=== PATIENT | female | born 1970 | race Caucasian/White ===

== ENCOUNTER → 2017-11-17 | Outpatient (CLI) | payer OTHER ==
[~2017-11-17] MED LIST: AMLO-110 PO; CNC/18 PO; LISI-729 PO; PRZ/40 PO
--- NOTE | 2017-11-17 19:30 | DIAGNOSTIC IMAGING REPORT ---
MRI OF THE CERVICAL SPINE WITHOUT IV CONTRAST CLINICAL HISTORY: Chronic neck pain. Left arm numbness. COMPARISON STUDY: MRI of the cervical spine dated 09/16/2015. TECHNIQUE: MRI of the cervical spine is performed utilizing various T1 and T2 weighted sequences in the axial, sagittal, and coronal planes. IV contrast was not administered for this examination. The examination is degraded by motion artifact. FINDINGS: Cervical spine: Vertebral body height and alignment are maintained throughout the cervical spine. Normal marrow signal intensity is preserved throughout the visualized osseous structures. The atlantodental articulation is maintained. The spinous processes appear intact. No destructive bony lesion is seen. A small hemangioma is noted in the body of C6. Intervertebral discs: Degenerative disc desiccation is seen throughout the cervical spine. The disc spaces are maintained. Spinal cord: The cervical spinal cord is normal in morphology and signal intensity. C2-C3: Unremarkable. C3-C4: Uncovertebral and facet arthropathy cause mild left neural foraminal stenosis. The central canal is patent. C4-C5: A small posterior disc osteophyte complex is eccentric to the left. Uncovertebral arthropathy causes mild left-sided neural foraminal stenosis. There is no significant acquired compromise of the central canal. C5-C6: A posterior disc osteophyte complex abuts the ventral cord. Uncovertebral and facet arthropathy cause [id number], left greater than right, neural foraminal stenosis. C6-C7: There is a disc herniation eccentric to left which measures up to 7 mm. In conjunction with a posterior disc osteophyte complex, this effaces the ventral cord. The minimum AP canal diameter measures 6 mm. Uncovertebral and facet arthropathy cause moderate to severe left and moderate right neural foraminal stenosis. C7-T1: Unremarkable. Soft tissues: The prevertebral and paraspinous soft tissues are normal in appearance. Brain parenchyma: Partially imaged brain parenchyma at the skull base is grossly normal. Partially empty sella is an incidental finding. IMPRESSION: 1. Motion degraded examination. 2. There is cervical spondylosis at C6-C7 where a disc herniation and disc osteophyte complex effaces the ventral cord. 3. Spondylotic change at additional levels as above. See discussion for detailed level by level analysis. 4. The cervical spinal cord is normal in morphology and signal intensity. 5. Additional findings as above. Dictated: 11/17/2017 5:38 PM Transcribed: 11/17/2017 7:30 PM [email or web address] Electronically signed by: Basil Curran M.D. 11/17/2017 7:50 PM Dictated Date/Time: 11/17/2017 5:38 PM
== END | disposition home or self-care (01) ==
LOC: C.MRIBC 16:50
PROVIDERS: ATTEND Anesthesiology
DX: M48.02 Spinal stenosis, cervical region (principal); M47.812 Spondylosis without myelopathy or radiculopathy, cervical region

== ENCOUNTER → 2017-11-23 | Outpatient (CLI) | payer OTHER | END | disposition home or self-care (01) | LOC: C.PATHSPEC 11:17 | PROVIDERS: ATTEND Plastic Surgery | DX: D22.9 Melanocytic nevi, unspecified (principal) ==

== ENCOUNTER → 2018-03-06 | Outpatient (CLI) | payer OTHER ==
[~2018-03-06] VITALS: Ht 162.6 cm; Wt 104.1 kg
[~2018-03-06] MED LIST changes: -AMLO-110 PO; +AMLO5TAB3 PO
[2018-03-06 16:02] VITALS: BP 127/54; PULSE 93; Ht 162.6 cm; Wt 104.1 kg
== END | disposition home or self-care (01) ==
LOC: C.NEUR 15:30
PROVIDERS: ATTEND Physician Assistant Medical
DX: R06.81 Apnea, not elsewhere classified (principal); R06.83 Snoring; R53.83 Other fatigue; F90.9 Attention-deficit hyperactivity disorder, unspecified type; Z82.0 Family history of epilepsy and other diseases of the nervous system

== ENCOUNTER 2019-01-25 05:49 | Observation (INO) ==
--- NOTE | 2019-01-08 17:38 | PAT Medication Instructions ---
Medication Instructions Date of Service January 08, 2019 Home Medications amlodipine 10 mg PO QAM lisinopril 5 mg PO QAM Advil Allergy Sinus acetaminophen 500 mg PO DAILY PRN fluoxetine [Prozac] 10 mg PO QAM ibuprofen [Advil] 200 mg PO Q6H PRN melatonin 10 mg PO HS PRN ASK your surgeon for instructions Advil Allergy Sinus ibuprofen [Advil] 200 mg PO Q6H PRN DO NOT take the morning of surgery lisinopril 5 mg PO QAM Take morning of surgery With a small sip of water, OTHERWISE NOTHING TO EAT OR DRINK AFTER MIDNIGHT: amlodipine 10 mg PO QAM acetaminophen 500 mg PO DAILY PRN (if needed, may be taken up to four hours before surgery) fluoxetine [Prozac] 10 mg PO QAM Take evening before surgery acetaminophen 500 mg PO DAILY PRN (if needed) melatonin 10 mg PO HS PRN (if needed) Other Notes If you have any questions please call us at [phone] or [phone] or [phone] or [phone]
--- NOTE | 2019-01-09 12:23 | Anesthesiology Consultation ---
Date of Service January 09, 2019 Assessment & Plan (1) Encounter for pre-operative examination: CHECK TEST AM DOS Chart Review Chart Review: Acceptable Risk for Surgery and Patient seen in Pre Admission Testing Teaching & Discussion Instructed NPO after midnight before surgery, except medications with 15 cc of water. Medication instructions provided according to the PAT guidelines. History Surgery Operation Date: 01/25/19 07:30 Proposed Procedures p Robotic Total Laparoscopic Hysterectomy - Lenore Palacios MD, FACOG Height/Weight Height: 5 ft 4 in Weight: 101.9 kg Allergies Allergy/AdvReac Type Severity Reaction Status Date / Time Macrolide Antibiotics Allergy Unknown HEMATEMESIS Verified 01/03/19 09:52 SEASONAL ALLERGIES Allergy Unknown HAYFEVER Uncoded 01/03/19 09:52 S/S Medications Home Medications Medication Instructions Recorded Confirmed Last Taken amlodipine 10 mg PO QAM 08/06/18 01/03/19 08/06/18 lisinopril 5 mg PO QAM 08/06/18 01/03/19 08/06/18 Advil Allergy Sinus 01/03/19 Unknown acetaminophen 500 mg PO DAILY PRN 01/03/19 01/03/19 Unknown fluoxetine [Prozac] 40 mg PO QAM 01/03/19 01/09/19 Unknown ibuprofen [Advil] 200 mg PO Q6H PRN 01/03/19 01/03/19 Unknown melatonin 10 mg PO HS PRN 01/03/19 01/03/19 Unknown Past Medical History Medical History Anxiety (Chronic) Depression (Chronic) HTN (hypertension) (Chronic) GERD (gastroesophageal reflux disease) Herniated disc CERVICAL Exercise / Class Metabolic Activity II 4-5 Yardwork/Stairs/Walk up hill (denies cp or sob with stairs) Past Family History Family History Grandfather (Paternal) Family hx of colon cancer Past Surgical History Surgical History Family history of reaction to anesthesia MOTHER NAUSEA/VOMITTING History of arthroscopy LEFT KNEE History of breast biopsy History of tooth extraction Nausea and vomiting after administration of anesthetic agent Past Anesthesia History No Hx of Anesthesia Complications (other than PONV) and No Family Hx of Anesthesia Complications (other than PONV) History of PONV History of PONV Social History Smoking Status: Never smoker Do You Dip or Chew Tobacco: No Hx Alcohol Use: Yes Alcohol type: beer, wine and hard liquor alcohol intake frequency: a few times a week Hx Substance Use: No substance use type: does not use Review of Systems Pt denies any recent chest pain, shortness of breath, palpitations, cough, fever or URI. Physical Exam Vital Signs BP: 91320 P: 75bpm SPO2: 97% RA T: 99.3 F R: 18 Constitutional + obese ENMT Mouth: + chipped teeth (upper R rear molar); no dental restorations and no loose teeth Thyromental Distance: > or= 3.5 Finger Breadths (4) Mallampati Class: III Neck + thick neck; neck extension not limited Respiratory normal respiratory effort Auscultation: lungs clear to auscultation bilaterally Cardiovascular Rate/Rhythm: regular rate and regular rhythm Heart Sounds: no murmur Extremities: no edema Testing Laboratory Results 01/09/19 12:31 01/09/19 12:31 Blood Type O Positive 01/09/19 12:31 Antibody Screen NEGATIVE 01/09/19 12:31 Electrocardiogram Date: 08/06/18 Findings: + NSR @ (82) *poor data quality. Chest X-Ray Date: 08/06/18 Findings: + NAD
[2019-01-09 13:57] LABS: Basophils # (auto) 0.02 K/uL (0-0.2); Basophils % (auto) 0.2 %; Eosinophils # (auto) 0.17 K/uL (0-0.5); Eosinophils % (auto) 1.9 %; Hematocrit (blood only) 39.3 % (37-47); Hemoglobin 13.3 g/dL (12.0-16.0); Immature Granulocytes # (auto) 0.02 K/uL (0.00-0.02); Immature Granulocytes % (auto) 0.2 %; Lymphocytes # (auto) 2.35 K/uL (1.2-3.4); Lymphocytes % (auto) 26.8 %; Mean Corpuscular Hgb Conc 33.8 g/dL (32-36); Mean Corpuscular Volume 86.8 fL (80-100); Mean Platelet Volume 9.8 fL (7.4-10.4); Monocytes # (auto) 0.81 K/uL (0.11-0.59); Monocytes % (auto) 9.2 %; Neutrophils # (auto) 5.39 K/uL (1.4-6.5); Neutrophils % (auto) 61.7 %; Platelet Count 345 K/uL (130-400); RDW Standard Deviation 41.5 fL (36.4-46.3); Red Blood Count 4.53 M/uL (4.2-5.4); White Blood Count 8.76 K/uL (4.8-10.8)
[2019-01-09 14:26] LABS: BUN Creatinine Ratio 17.1 (10-20); Calcium 9.4 mg/dl (8.5-10.1); Creatinine Clr Calc Pharmacy 102.1 ml/min; Est GFR (African American) 102.5; Est GFR (Non-African American) 88.4; Potassium 4.2 mmol/L (3.5-5.1)
--- OUTSIDE RECORDS SUMMARY | 2019-01-25 05:53 | External Medical Summary | Continuity of Care Document ---
:1970 Author Name Valentín Mandel, Provider Address Unavailable Unavailable , Care Team Providers Name Role Phone Elyse Miller Unavailable [email or web address] Palacios [email or web address]. Unavailable [email or web address] ELYSE ARMENTA Unavailable Unavailable Isis CHAVIRA Unavailable Unavailable Unavailable Unavailable Unavailable Problems Lump of skin of upper extremity, right (782.2) (R22.31) Chronic neck pain (723.1) (M54.2) Numbness of left hand (782.0) (R20.0) Sleep apnea (780.57) (G47.30) Leiomyoma (215.9) (D21.9) Uterine enlargement (621.2) (N85.2) Menorrhagia (626.2) (N92.0) Pelvic pain (R10.2) Encounter for routine gynecological exam ination with Papanicolaou smear of cervix (V72.31) (Z01.419) Blue nevus (216.9) (D23.9) ADHD (314.01) (F90.9) Fatigue (780.79) (R53.83) Snoring (786.09) (R06.83) Witnessed episode of apnea (786.03) (R06.81) Change in mole (216.9) (D22.9) Benign essential hypertension (401.1) (I10) Depression with anxiety (300.4) (F41.8) Chest pressure (786.59) (R07.89) Encounter for IUD insertion (V25.11) (Z30.430) Dermatofibroma (216.9) (D23.9) Atypical nevi (216.9) (D22.9) Skin irritation from shaving (692.9) (L25.9) Change in pigmented skin lesion (216.9) (L81.9) Allergies and Adverse Reactions Azithromycin PACK (Allergy) Medications Lisinopril 5 MG Oral Tablet; TAKE 1 TABLET DAILY. Start: 12-Aug-2016 Quantity: 90 Refills: 3 amLODIPine Besylate 10 MG Oral Tablet; TAKE 1 TABLET EVERY D AY Quantity: 90 Refills: 3 FLUoxetine HCl - 40 MG Oral Capsule; TAKE 1 CAPSULE BY MOUTH EVERY DAY SASKIA Armenta Start: 03-Nov-2018 Quantity: 30 Refills: 5 hydrOXYzine HCl - 10 MG Oral Tablet; ELIO E 1 TABLET EVERY 8 HOURS NEEDED FOR ANXIETY. SASKIA Armenta Start: 31-Aug-2018 Quantity: 30 Refills: 0 Procedures History of Knee Surgery Status: Complete d History of Pilonidal Cyst Resection Stat us: Completed Immunizations Immunizations not documented Family History Mother Family history of Anxiety (300.00) (F41.9) Status: Active Family history of depression (V17.0) (Z81.8) Status: Active Family history of sleep apnea (V19.8) (Z82.0) Status: Active Father Family history of hypertension (V17.49) (Z82.49) Status: Act donald Grandfather Family history of Colon cancer (153.9) (C18.9) Status: Activ e Family history of malignant neoplasm of prostate (V16. 42) (Z80.42) Status: Active Grandmother Family history of myocardial infarction (V17.3) (Z82.49) Sta tus: Active Social History - Smoking Status Never smoker Never smoker Plan of Treatment Planned Encounters Appointment; Lenore Palacios M.D. Start: 12-Feb-2019 11:00 Request Planned Observations Planned Goals not documented Results No Known Results Results not documented Vital Signs 09-Jan-2019 10:59 Systolic 122 mm[Hg] Diastolic 80 mm[Hg] BMI Calculated 38.55 kg/m2 Weight 224.6 lb Height 64 in BSA Calculated 2.05 m2 Encounters Appointment; Lenore Palacios M.D. 25-Jan-2019 7:30 Encounter Diagnosis: Problem not documented Appointment; Lenore Palacios M.D. 09-Jan-2019 11:00 Encounter Diagnosis: Problem not documented Appointment; Connie Fish PA-C 13-Dec-2018 13:00 Encounter Diagnosis: Problem not documented Appointment; Elyse Armenta CRNP 19-Oct-2018 13:00 Encounter Diagnosis: Problem not documented Appointment; Echo/Stress, Echo/Stress 20-Sep-2018 15:15 Encounter Diagnosis: Problem not documented Appointment; Elyse Armenta CRNP 14-Sep-2018 13:30 Encounter Diagnosis: Problem not documented Appointment; Echo/Stress, Echo/Stress 12-Sep-2018 9:30 Encounter Diagnosis: Problem not documented Appointment; Elyse Armenta CRNP 31-Aug-2018 9:30 Encounter Diagnosis: Problem not documented Appointment; Lenore Palacios M.D. 12-Jul-2018 15:15 Encounter Diagnosis: Problem not documented Appointment; Lenore Palacios M.D. 11-Jul-2018 10:00 Encounter Diagnosis: Problem not documented Appointment; OBGYN SC1, Ultrasound 11-Jul-2018 9:45 Encounter Diagnosis: Problem not documented Appointment; Ladi Dominguez PA-C 06-Jul-2018 13:45 Encounter Diagnosis: Problem not documented Appointment; OBGYN SC2, Ultrasound 25-Jun-2018 8:00 Encounter Diagnosis: Problem not documented Appointment; Lenore Palacios M.D. 22-Jun-2018 14:00 Encounter Diagnosis: Problem not documented Appointment; Darleen Juarez M.D. 21-Jun-2018 14:15 Encounter Diagnosis: Problem not documented Appointment; Connie Fish PA-C 06-Mar-2018 15:00 Encounter Diagnosis: Problem not documented Appointment; Clau Moss M.D. 28-Dec-2017 15:30 Encounter Diagnosis: Problem not documented Appointment; Ladi Dominguez PA-C 07-Dec-2017 9:00 Encounter Diagnosis: Problem not documented Appointment; Ladi Dominguez PA-C 01-Dec-2017 15:45 Encounter Diagnosis: Problem not documented Appointment; Darleen Juarez M.D. 23-Nov-2017 15:00 Encounter Diagnosis: Problem not documented Appointment; Anthony Chavira M.D. 25-Sep-2017 19:20 Encounter Diagnosis: Problem not documented Appointment; Clau Moss M.D. 28-Aug-2017 13:30 Encounter Diagnosis: Problem not documented Appointment; Lenore Palacios M.D. 12-Feb-2019 11:00 Encounter Diagnosis: Problem not documented
[2019-01-25] MEDS ORDERED: LR 15ML/HR IV SCH (06:00)
[2019-01-25] MEDS ORDERED: CEFAZOLIN 2000MG 2,000 MG/15 ML SYR IV SCH (06:00)
[2019-01-25] MEDS ORDERED: LACTATED RINGER'S 1,000 ML IV SCH ×2 (06:00→09:30)
[2019-01-25] MEDS ORDERED: SCOPOLAMINE 1.5 MG TDSY TD SCH (06:00)
[2019-01-25] MEDS ORDERED: ACETAMINOPHEN 1000 MG/100 ML IV IV ONE (06:21)
[2019-01-25] MEDS ORDERED: fentaNYL citrate 100 MCG/2 ML VIAL ONE ×2 (06:30→08:53)
[2019-01-25] MEDS ORDERED: MIDAZOLAM HCL 1 MG/ML 2ML VIAL ONE (06:30)
[2019-01-25] MEDS ORDERED: NEOSTIGMINE METHYLSULFATE 5 MG/5 ML SYR ONE (06:36)
[2019-01-25] MEDS ORDERED: PROPOFOL IV EMULSION 10 MG/ML 20 ML VIAL IV ONE (06:36)
[2019-01-25] MEDS ORDERED: ONDANSETRON INJ 2 MG/ML 2 ML VIAL ONE ×2 (06:36→08:04)
[2019-01-25] MEDS ORDERED: LIDOCAINE HCL 2% 2 ML VIAL/AMP(20MG/ML) INFIL ONE (06:36)
[2019-01-25] MEDS ORDERED: DEXAMETHASONE SOD INJ 4 MG/ML VIAL ONE ×2 (06:36→08:34)
[2019-01-25] MEDS ORDERED: GLYCOPYRROLATE 0.2 MG/ML VIAL ONE (06:36)
[2019-01-25] MEDS ORDERED: ROCURONIUM BROMIDE 10 MG/ML 5 ML VIAL ONE ×2 (06:36→08:31)
[2019-01-25] MEDS ORDERED: METHYLENE BLUE 0.5% 10 ML VIAL ONE (06:56)
[2019-01-25] MEDS ORDERED: BUPIVACAINE 0.5 % 5 MG/1 ML MPF 30ML VIAL ONE (06:56)
--- NOTE | 2019-01-25 07:09 | History & Physical Bridge Note ---
Date of Service January 25, 2019 History & Physical Bridge Note I have examined the patient, reviewed the History & Physical and in the interval since the performance of the History & Physical I have noted the following changes of clinical significance: no changes noted
[2019-01-25] MEDS ORDERED: KETOROLAC 30 MG/ML VIAL IV PRN ×2 (07:25→09:21)
[2019-01-25] MEDS ORDERED: ONDANSETRON INJ 2 MG/ML 2 ML VIAL IV PRN ×2 (07:25→09:21)
[2019-01-25] MEDS ORDERED: PROMETHAZINE HCL 6.25 MG in SODIUM CHLORIDE 0.9% 50 ML IV PRN (07:25)
[2019-01-25] MEDS ORDERED: ATROPINE SULFATE 0.1 MG/ML 10ML SYR IV PRN (07:25)
[2019-01-25] MEDS ORDERED: CHECK SCOPOLAMINE PATCH PLACEMENT SCH (08:00)
[2019-01-25] MEDS ORDERED: KETOROLAC 30 MG/ML VIAL ONE (08:04)
[2019-01-25] MEDS ORDERED: TISSEEL FIBRIN SEALANT 4ML TOP ONE (09:10)
[2019-01-25] MEDS ORDERED: MEPERIDINE HCL 50 MG/ML CARP IV PRN (09:21)
[2019-01-25] MEDS ORDERED: MAGNESIUM HYDROXIDE SUSP 30 ML UDC PO PRN (09:21)
[2019-01-25] MEDS ORDERED: PROMETHAZINE HCL 25 MG in SODIUM CHLORIDE 0.9% 50 ML IV PRN (09:21)
[2019-01-25] MEDS ORDERED: SIMETHICONE 80 MG CHEW PO PRN (09:21)
[2019-01-25] MEDS ORDERED: BISACODYL 10 MG SUPP PR PRN (09:21)
[2019-01-25] MEDS ORDERED: IBUPROFEN 600 MG TAB PO PRN (09:21)
[2019-01-25] MEDS ORDERED: ACETAMINOPHEN 325 MG TAB PO PRN (09:21)
[2019-01-25] MEDS ORDERED: OXYCODONE/ACETAMINOPHEN 5mg/325mg TAB PO PRN (09:21)
[2019-01-25] MEDS ORDERED: ZOLPIDEM TARTRATE 5 MG TAB PO PRN (09:21)
[2019-01-25] MEDS ORDERED: PROMETHAZINE HCL 12.5 MG in SODIUM CHLORIDE 0.9% 50 ML IV PRN (09:21)
--- NOTE | 2019-01-25 09:56 | Operative Report ---
Post Operative Report Pre & Post Diagnosis Operation Date: 01/25/19 07:30 Pre-Op Diagnosis: Menorrhagia, Pelvic Pain Post-Op Diagnosis: Menorrhagia, Pelvic Pain Procedure Operation Date: 01/25/19 07:30 Actual Procedures p Robotic Total Laparoscopic Hysterectomy, (Not Applicable) - Lenore Palacios MD, FACOG s Cystoscopy(Not Applicable) - Lenore Plaacios MD, FACOG Surgeon Lenore Palacios MD, FACOG La[employer] Professional none Estimated Blood Loss 20 Findings Consistent with Post-Op Diagnosis Specimens Uterus cervix bilateral fallopian tube Description of Procedure Patient given a general anesthetic preop antibiotics given prepped and draped in dorsal lithotomy position in yellowfin stirrups bladder drained with a catheter V care attached to her cervix and uterus in the usual fashion glove change and a supraumbilical incision was made with scalpel using Kearns technique we did a cutdown through subcutaneous fat through the fascia splitting the rectus muscles and entering the peritoneal cavity without difficulty blunt-tipped Kearns trocar then placed balloon inflated to stabilize the port CO2 gas used to insufflate the abdomen. Findings upper abdomen normal no sign of visceral organ injury deep Trendelenburg position obtained the uterus was enlarged consistent with preop ultrasound adnexa on the left had a small simple cyst otherwise were normal ureters followed in normal course 2 robotic ports placed one on the left one in the right and a left upper quadrant accessory port 11 mm blade less Robot docked arm #1 became monopolar ainsley are #2 bipolar [place] we identified the fallopian tubes on each side and these were removed through the accessory port after being having their attachments removed electrosurgical we i dentified the ureter on the left side was well away from the ovarian uterine blood supply to coagulate the blood supply distal to the left ovary same process with the round ligament uterine vessels were then skeletonized on the left side and bladder flap sharply dissected away vessels were then coagulated with the bipolar [place] and then cut with the monopolar ainsley we were well away from the left ureter The exact same process was repeated on the right side once both vessels were coagulated and cut of the uterine left and right side we made him anterior colpotomy with the monopolar ainsley colpotomy then completed the uterus was able to be removed through the vagina and then a sponge and a glove was placed in the vagina. Instrument exchange occurred arm #1 became maximus needle nur arm #2 became the Cobra grasper 12 inch 2 oh 90-day suture then passed to the accessory port cuff was closed from left to right back right to left taking at least 1 cm full-thickness bites of vaginal mucosa suture was cut so there was no tail needle removed for the excess report hemostasis excellent at this stage IV cc of Tisseel was applied to the pedicle sites laparoscopically Cystoscopy was performed we did not give methylene blue was able to visualize good strong jets of urine that were clear from both left and right ureter openings no stitches in the bladder no injuries cystoscope removed and new Piper catheter placed the sponge and a glove had been removed and there was no vaginal bleeding noted At this stage instruments removed laparoscopically CO2 allowed to escape incisions injected with 0.5% Marcaine fascia closed through closure with 0 Vicryl in both the umbilical and left upper quadrant incision 4 oh septic or Monocryl closures with Dermabond applied sponge and instrument I attest to the content of the Intraoperative Record and any orders documented therein. Any exceptions are noted below.
[2019-01-25] MEDS: HYDROmorphone INJ 2 MG/ML SYR/VIAL IV PRN ×4 (10:00→10:15)
[2019-01-25] MEDS ORDERED: HYDROmorphone INJ 1 MG/ML SYRINGE ONE (10:00)
--- NOTE | 2019-01-25 10:22 | Anesthesiology Progress Note ---
Date of Service January 25, 2019 Anesthesia Post Procedure Vital Signs Vital Signs: Temp Pulse Pulse Resp BP Pulse Ox 01/25/19 10:20 93 H 18 148/77 H 95 01/25/19 10:10 95 H 18 143/78 H 95 01/25/19 10:00 96 H 18 145/81 H 97 01/25/19 09:50 100 H 18 152/76 H 97 01/25/19 09:40 103 H 18 162/88 H 100 01/25/19 09:33 36.9 C 110 H 18 142/95 H 97 01/25/19 06:26 37.0 C 82 18 133/80 95 Transfer of Care Handoff Completed per policy Notes Mental Status: alert / awake / arousable Patient Amnestic to Procedure: Yes Nausea / Vomiting: adequately controlled Pain: adequately controlled Airway Patency, RR, SpO2: stable & adequate BP & HR: stable & adequate Hydration State: stable & adequate Anesthetic Complications: no major complications apparent
[2019-01-25] MEDS ORDERED: ACETAMINOPHEN 500 MG TAB PO PRN (11:11)
[2019-01-25] MEDS: OXYCODONE/ACETAMINOPHEN 5mg/325mg TAB PO PRN ×2 (13:32→18:49)
[2019-01-25] MEDS ORDERED: DOCUSATE SODIUM 100 MG CAP PO SCH (21:00)
[2019-01-26] MEDS ORDERED: FLUOXETINE HCL 20 MG CAP PO SCH (09:00)
[2019-01-26] MEDS ORDERED: AMLODIPINE BESYLATE 5 MG TAB PO SCH (09:00)
[2019-01-26] MEDS ORDERED: LISINOPRIL 5 MG TAB PO SCH (09:00)
--- NOTE | 2019-01-27 09:16 | Discharge Summary ---
Date of Service January 27, 2019 Admission Exam (Per Admitting) Constitutional WD/WN, vitals as above Gastrointestinal (Abdomen) normal bowel sounds, soft, nontender, no hepatosplenomegaly Discharge Data Procedures Performed Operation Date: 01/25/19 07:30 Actual Procedures p Robotic Total Laparoscopic Hysterectomy, bilateral salpingectomy, cystoscopy(Not Applicable) - Lenore Palacios MD, TAMEKAOG s Cystoscopy(Not Applicable) - Lenore Palacios MD, FACOG Hospital Course (1) Enlarged uterus: Patient had a laparoscopic hysterectomy and was discharged a few hours after surgery she was doing well ambulating well tolerating oral diet pain was well controlled had no extremity pain was voiding well prescriptions were given and discharge instructions were reviewed
== END 2019-01-25 19:00 | disposition home or self-care (01) ==
LOC: ASU 05:49 → 4N 05:49